=== PATIENT | female | born 2000 | race Caucasian/White ===

== ENCOUNTER 2020-02-28 18:55 | Emergency (ER) | payer OTHER ==
[~2020-02-28] VITALS: Ht 167.6 cm; Wt 79.4 kg
[2020-02-28 20:29] VITALS: BP 104/62
== END 2020-02-28 20:30 | disposition home or self-care (01) ==
LOC: ER 18:55
DX: J02.8 Acute pharyngitis due to other specified organisms (principal); Z98.890 Other specified postprocedural states; Z88.1 Allergy status to other antibiotic agents; Z88.5 Allergy status to narcotic agent